=== PATIENT | male | born 1995 | race African-American/Black ===

== ENCOUNTER 2017-11-02 18:50 | Emergency (ER) | payer OTHER ==
[2017-11-02] MEDS: ACETAMINOPHEN 325 MG TAB PO (21:20)
[2017-11-02 21:36] LABS: BASO # 0.1 10^3/uL (0.0-0.2); BASO % 1.3 % (0.0-1.0); EOS # 0.2 10^3/uL (0.0-0.50); EOS % 2.6 % (0.0-3.0); HEMATOCRIT 42.9 % (42.0-52.0); HEMOGLOBIN 14.2 g/dl (13.5-17.5); IMMATURE GRANULOCYTE % 0.2 % (0-3.0); LYMPH # 1.8 10^3/uL (1.5-6.5); LYMPH % 30.4 % (24.0-44.0); MEAN CORPUSCULAR HEMOGLOBIN 27.3 pg (27.0-33.0); MEAN CORPUSCULAR HGB CONC 33.1 g/dl (32.0-36.5); MEAN CORPUSCULAR VOLUME 82.3 fl (80.0-96.0); MONO # 0.6 10^3/uL (0.0-0.8); MONO % 9.7 % (0.0-5.0); NEUTROPHILS # 3.4 10^3/uL (1.8-7.7); NEUTROPHILS % 55.8 % (36.0-66.0); PLATELET COUNT, AUTOMATED 279 10^3/uL (150-450); RED BLOOD COUNT 5.21 10^6/uL (4.30-6.10); RED CELL DISTRIBUTION WIDTH 12.5 % (11.5-14.5); WHITE BLOOD COUNT 6.1 10^3/uL (4.0-10.0)
[2017-11-02] MEDS: IPRATROPIUM 0.5MG/ALBUTEROL 2.5MG INH SOL UD 3ML (DUONEB)(J7620) NEB (21:53)
[2017-11-02 21:54] LABS: ANION GAP 6 MEQ/L (8-16); BLOOD UREA NITROGEN 5 MG/DL (7-18); C REACTIVE PROTEIN QUANTITATIV 0.53 MG/DL (0.00-0.30); CALCIUM LEVEL 9.5 MG/DL (8.5-10.1); CARBON DIOXIDE LEVEL 27 MEQ/L (21-32); CHLORIDE LEVEL 107 MEQ/L (98-107); CREATININE FOR GFR 0.77 MG/DL (0.70-1.30); GLOMERULAR FILTRATION RATE > 60.0 (>60); GLUCOSE, FASTING 97 MG/DL (70-100); POTASSIUM SERUM 3.9 MEQ/L (3.5-5.1); SODIUM LEVEL 140 MEQ/L (136-145)
== END 2017-11-02 22:31 | disposition home or self-care (01) ==
LOC: M ED 18:50
DX: J45.901 Unspecified asthma with (acute) exacerbation (principal); J18.1 Lobar pneumonia, unspecified organism; F17.210 Nicotine dependence, cigarettes, uncomplicated; Z79.2 Long term (current) use of antibiotics; Z91.030 Bee allergy status; Z79.899 Other long term (current) drug therapy
CPT/HCPCS: 71046

== ENCOUNTER 2018-12-13 18:17 | Emergency (ER) | payer OTHER ==
[~2018-12-13] VITALS: Ht 180.3 cm; Wt 88.6 kg
[~2018-12-13 18:17] MED LIST: LEVA1TAB2 PO; PROAAER10 INH; TESS100C PO
[2018-12-13 18:24] VITALS: BP 142/78
[2018-12-13] MEDS ORDERED: FLON1SPR NARES (18:44)
[2018-12-13] MEDS ORDERED: PSEU30TA85 PO (18:44)
[2018-12-13] MEDS ORDERED: MUCI30TA5 PO (18:45)
== END 2018-12-13 18:51 | disposition home or self-care (01) ==
LOC: M ED 18:17
DX: J00 Acute nasopharyngitis [common cold] (principal); J30.9 Allergic rhinitis, unspecified; F17.210 Nicotine dependence, cigarettes, uncomplicated; Z91.030 Bee allergy status

== ENCOUNTER 2019-09-13 14:45 | Emergency (ER) | payer OTHER ==
[~2019-09-13] VITALS: Ht 180.3 cm; Wt 93.0 kg
[~2019-09-13 14:45] MED LIST changes: +FLON1SPR NARES; +MUCI30TA5 PO; +PSEU30TA85 PO
[2019-09-13 15:58] VITALS: BP 122/65
== END 2019-09-13 15:59 | disposition home or self-care (01) ==
LOC: M ED 14:45
DX: S00.81XA Abrasion of other part of head, initial encounter (principal); W22.09XA Striking against other stationary object, initial encounter; Y92.019 Unspecified place in single-family (private) house as the place of occurrence of the external cause; Z91.030 Bee allergy status

== ENCOUNTER 2019-09-25 11:04 | Emergency (ER) | payer OTHER ==
[~2019-09-25] VITALS: Ht 180.3 cm; Wt 94.1 kg
[2019-09-25 12:13] LABS: BASO % 0.9 % (0.0-1.0); EOS # 0.1 10^3/uL (0.0-0.5); EOS % 3.6 % (0.0-3.0); HEMATOCRIT 42.9 % (42.0-52.0); HEMOGLOBIN 13.6 g/dl (13.5-17.5); LYMPH # 1.5 10^3/uL (1.5-5.0); LYMPH % 46.5 % (24.0-44.0); MEAN CORPUSCULAR HEMOGLOBIN 27.3 pg (27.0-33.0); MEAN CORPUSCULAR HGB CONC 31.7 g/dl (32.0-36.5); MONO # 0.3 10^3/uL (0.0-0.8); MONO % 9.1 % (0.0-5.0); NEUTROPHILS # 1.3 10^3/uL (1.5-8.5); NEUTROPHILS % 39.9 % (36.0-66.0); PLATELET COUNT, AUTOMATED 245 10^3/uL (150-450); RED BLOOD COUNT 4.99 10^6/uL (4.30-6.10); WHITE BLOOD COUNT 3.3 10^3/uL (4.0-10.0)
[2019-09-25 12:35] LABS: ALBUMIN 3.9 GM/DL (3.2-5.2); ALT/SGPT 22 U/L (12-78); BILIRUBIN,DIRECT 0.1 MG/DL (0.0-0.2); BILIRUBIN,TOTAL 0.4 MG/DL (0.2-1.0); BLOOD UREA NITROGEN 10 MG/DL (7-18); CALCIUM LEVEL 9.2 MG/DL (8.5-10.1); CARBON DIOXIDE LEVEL 29 MEQ/L (21-32); CHLORIDE LEVEL 107 MEQ/L (98-107); CREATININE FOR GFR 0.83 MG/DL (0.70-1.30); GLOMERULAR FILTRATION RATE > 60.0 (>60); GLUCOSE, FASTING 94 MG/DL (70-100); LIPASE 88 U/L (73-393); POTASSIUM SERUM 4.1 MEQ/L (3.5-5.1); SODIUM LEVEL 139 MEQ/L (136-145)
[2019-09-25] MEDS ORDERED: ISOVUE-370 76% 100ML VIAL (Q9967) As Ordered ONE (14:30)
[2019-09-25 14:47] LABS: APPEARANCE, URINE CLEAR (CLEAR); BACTERIA, URINE AUTO NEGATIVE (NEGATIVE); BILIRUBIN, URINE AUTO NEGATIVE (NEGATIVE); BLOOD, URINE BLOOD NEGATIVE (NEGATIVE); COLOR, URINE YELLOW (YELLOW); GLUCOSE, URINE (UA) AUTO NEGATIVE (NEGATIVE); KETONE, URINE AUTO NEGATIVE (NEGATIVE); LEUKOCYTE ESTERASE, URINE AUTO NEGATIVE (NEGATIVE); NITRITE, URINE AUTO NEGATIVE (NEGATIVE); PROTEIN, URINE AUTO NEGATIVE (NEGATIVE); RBC, URINE AUTO 1 /HPF (0-3); SQUAMOUS EPITHELIAL CELL UR AU 0 /HPF (0-6); UROBILINOGEN, URINE AUTO 0.2 mg/dL (0.0-2.0); WBC, URINE AUTO 1 /HPF (0-3)
--- NOTE | 2019-09-25 14:58 | REP ---
CT ABDOMEN AND PELVIS WITH IV WITHOUT ORAL CONTRAST: HISTORY: Left upper quadrant left lower quadrant pain. Nausea vomiting diarrhea. 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 Lung bases are clear. The liver is normal in size homogeneous in texture. The spleen is unremarkable. No adrenal lesion is seen on either side. No abnormality is noted in gallbladder or pancreas. No retroperitoneal mass or adenopathy is seen. Kidneys enhance symmetrically. There are two left renal arteries. There is no evidence of hydronephrosis or intrarenal calculus. A normal appendix is seen in the right lower quadrant extending into the upper pelvis. Small and large bowel loops are unremarkable. No abdominal wall defect is seen. No free air is observed. No abnormal fluid collection. Prostate, seminal vesicles, and largely empty urinary bladder are unremarkable. IMPRESSION: Normal CT study abdomen and pelvis with IV contrast. Electronically Signed by Joe Mathis MD 09/25/2019 03:03 P
[2019-09-25 15:40] LABS: MONO SCRN NEGATIVE (NEGATIVE)
[2019-09-25 16:19] VITALS: BP 145/82
== END 2019-09-25 16:42 | disposition home or self-care (01) ==
LOC: M ED 11:04
DX: A08.4 Viral intestinal infection, unspecified (principal); Z91.030 Bee allergy status
CPT/HCPCS: 36415; 74177; 80048; 80076; 81001; 83690; 85025; 86308; 99284; Q9967